=== PATIENT | female | born 1990 | race Caucasian/White ===

== ENCOUNTER 2025-04-22 10:57 | Outpatient (REF) | payer SELFPAY ==
--- OUTSIDE RECORDS SUMMARY | 2024-04-08 08:42 | XMS_ITS | Encounter Summary ---
Author Organization [facility] Address [address] [place] [address] Phone Care Team Providers Care Basket Weaver Name Role Phone OsmanCamden perry Smitha HEWITT Primary Care Provider [phone] Encounter Details Date Type Department Care Team (Late st Contact Info) Description 04/08/2024 8:42 AM EDT Hospital Encounter [facility] [address] [place] [address] Catia Martin FNP [address] [place] [id number] [email or web address] Social History Tobacco Use Types Packs/Day Years Used Date Smoking Tobacco: Every Day Cigarettes Smokeless Tobacco: Never Alcohol Use Standard Drinks/Week Comments Not Currently 70 (1 standard drink = 0.6 oz pu re alcohol) Daily 1/2 gallon Education Answer Date Recorded Are you interested in more education? Not on aleshia e 11/15/2022 Are you concerned about learning? Not on file 11/15/2022 No 11/15/2022 No 11/15/2022 Digital Access Answer Date Recorded No 12/16/2022 No 12/16/2022 Reliable internet access at home? Not on file 12/16/2022 Device with a working camera? Not on file Comments No Sex and Gender Information Value Date Recorded Sex Assigned at Female 11/27/2017 11:11 PM EDT Legal Sex Female 9:08 PM EDT Gender Identity Female 11/27/2017 11:11 PM EDT Sexual Orientation Straight 11/27/2017 11 :11 PM EDT documented as of this encounter Plan of Treatment Not on file documented as of this encounter Procedures Procedure Name Priority Date/Time Associated Diagnosis Comments XR FINGER 2 OR MORE VIEWS (LEFT) Urgent/patient waiting 04/08/2024 8:49 AM EDT Fall, initial encounter documented in this encounter Results * XR FINGER 2 OR MORE VIEWS (LEFT) (04/08/2024 8:49 AM EDT) Anatomical Region Laterality Modality Hand Left Computed Radiogr aphy 04/08/2024 9:05 AM EDT Impressions 04/08/2024 9:26 AM EDT Acute fracture of the little finger proximal phalanx with apex lateral and palmar angulation. ATTESTATION: Stacy Esteves as teaching physician, have reviewed the images for this case and if necessary edited the report originally created by Trey Winston. Narrative 04/08/2024 9:26 AM EDT XR FINGER 2 OR MORE VIEWS (LEFT) Referring clinician's provided indication for this examination in [facility]: S/P Fall; fall yesterday COMPARISON: None FINDINGS: Acute fracture of the proximal diaphysis of the little finger proximal phalanx with apex lateral and palmar angulation. Associated overlying soft tissue swelling. Normal joint spaces. Procedure Note Stacy Gallardo MD, YANIRA - 04/08/2024 XR FINGER 2 OR MORE VIEWS (LEFT) Referring clinician's provided indication for this examination in [facility]:S/P Fall; fall yesterday COMPARISON: None FINDINGS: Acute fracture of the proximal diaphysis of the little finger proximalphalanx with apex lateral and palmar angulation. Associated overlying softtissue swelling. Normal joint spaces. IMPRESSION: Acute fracture of the little finger proximal phalanx with apex lateral andpalmar angulation. ATTESTATION: Stacy Esteves as teaching physician, have reviewed theimages for this case and if necessary edited the report originally createdby Trey Winston. Catia Martin LEATHERSMITH IMG XR UPPER EXTREMITY Maribell l Result documented in this encounter Visit Diagnoses Not on filedocumented in this encounter Additional Health Concerns Infection Onset Date Last Indicated Resolved Time MDR-GN 06/30/2023 06/30/2023 06/29/2024 1:21 AM EST documented as of this encounter Care Teams Basket Weaver Relationship Specialty Start Date End Date Camden Fernández DO [email or web address] PCP - General 07/24/17 documented as of this encounter Additional Source Comments The information contained in this document represents components of the legal health record. It is not the complete legal health record.[facility]
--- OUTSIDE RECORDS SUMMARY | 2025-04-22 12:16 | XMS_ITS | Clinical Summary ---
Author Organization [facility] Address [address] [place] [address] Care Team Providers Care Merchandise Support Associate Name Role Phone Unavailable Primary Care Provider Unavailabl e Allergies No known active allergies Social History Tobacco Use Types Packs/Day Years Used Date Smoking Tobacco: Never Assessed Comments Unknown Sex and Gender Information Value Date Recorded Sex Assigned at Not on file Legal Sex Female 2:01 PM EST Gender Identity Not on file Sexual Orientation Not on file Last Filed Vital Signs Vital Sign Reading Time Taken Comments Blood Pressure 137/87 09/24/2022 2:09 PM EST Pulse 100 09/24/2022 2:09 PM EST Temperature 36.7 C (98.1 F) 09/24/2022 2:09 PM EST Respiratory Rate 17 09/24/2022 2:09 PM EST Oxygen Saturation 97% 09/24/2022 2:09 PM EST Inhaled Oxygen Concentration - - Weight 85.3 kg (188 lb) 09/24/2022 2:09 PM EST Height 157.5 cm (5' 2 ) 09/24/2022 2:09 PM EST Body Mass Index 34.39 09/24/2022 2:09 PM EST Plan of Treatment Health Maintenance Due Date Last Done Comments HIV Screening 1988 Varicella Vaccines (1 of 2 - 13+ 2-dose series) 2001 Hepatitis B Vaccines (1 of 3 - 19+ 3-dose series) 2007 DTaP,Tdap,and Td Vaccines (1 - Tdap) 2010 Alcohol/Substance Use Screening 07/21/2024 COVID-19 Vaccine (1 - 2023-2 5 season) 2025 Influenza Vaccine (#1) 2025 RSV Vaccine (60+ years old a nd patients) (1 - 1-dose 75+ series) 2063 Pneumococcal Vaccine: Pediat jaylen (0-5 Years) and At-Risk Patients (6-50 Years) Aged Out No longer eligible b ased on patient's age to complete this topic Insurance [facility]
--- OUTSIDE RECORDS SUMMARY | 2025-04-22 12:16 | XMS_ITS | Clinical Summary ---
Author Organization [facility] Address [address] [place] [address] Phone Care Team Providers Care Cash Grain Farmer Name Role Phone Camden Fernández Smitha HEWITT Primary Care Provider [phone] Allergies Active Allergy Reactions Criticality Noted Date Comments Oxycodone-Acetaminophen 12/02/2022 Other reaction(s): itchy Medications albuterol (PROAIR HFA) 90 mcg/actuation inhaler Inhale 2 puffs into the lungs every 4 (four) hours as needed. 10/21/2011 Active QUEtiapine (SEROQUEL) 100 MG tablet TK 1 T PO QD HS 2 06/18/2019 Active gabapentin (NEURONTIN) 300 MG capsule Take 300 mg by mouth 3 (three) times a day. Active LORazepam (ATIVAN) 0.5 MG tablet TK 2 TS PO TID FOR 7 DAYS 02/28/2020 Active sertraline (ZOLOFT) 100 MG tablet Take 100 mg by mouth daily. 02/20/2020 Active topiramate (TOPAMAX) 25 MG tablet Take 25 mg by mouth daily. 08/18/2023 Active zolpidem (AMBIEN) 10 mg tablet Take 10 mg by mouth daily as needed. Active melatonin 1 mg/mL oral liquid Take 1 mg by mouth nightly at bedtime as needed. 04/04/2021 Active hydrOXYzine (ATARAX) 25 MG tablet Take 25 mg by mouth every 8 (eight) hours as needed. 08/13/2023 Active cloNIDine HCL (CATAPRES) 0.1 MG tablet Take 0.1 mg by mouth 4 (four) times a day. 03/18/2024 Active ibuprofen (ADVIL,MOTRIN) 600 MG tablet Take 1 tablet (600 mg total) by mouth 3 (three) times a day for 3 days. Then tid prn pain/inflamm ation 30 tablet 04/08/2024 Active Active Problems Problem Noted Date Diagnosed Date Menorrhagia with regular cycle 08/26/2023 Overview (08/26/2023): Cycle sound normal, has increased flow from 3 to 5 days has some mild PMS symptoms Assessment & Plan (08/26/2023 6:13 PM EST): Cycles fall well within the normal range, though this been a slight change for her. This may actually be due to becoming healthier or recovering from substance use. Recommend she continue to track her cycles and return if they change further, recommend checking TSH and CBC Encounter for preconception consultation 024 Overview (08/26/2023): Is tried to conceive for 1 year, normal monthly cycles Assessment & Plan (08/26/2023 6:14 PM EST): I reviewed the steps of an infertility evaluation, and she would like to talk to her partner first. Additionally, it appears she has [facility], which means that while the evaluation is covered, treatment is not. Also per their rules, [place] able to except ifm-gx-pncows payments for treatments. She would like to talk about both evaluation and treatment with her partner before proceeding. Immunizations Immunization Administration Dates Next Due DTP 02/13/1993, 9,1988,08/08,1988 HPV,quadrivalent 11/21/2006,07/25/2006, 6 Hepatitis A, Adult 01/02/2015 Hepatitis B 10/02/1999,04/30/1999,03/19/1999 Influenza, Unspecified Formulation 04/27/2009 MMR 03/10/1998,07/16/1989 Meningococcal ACWY, unspecif ied formulation 03/26/2007 Polio - OPV 02/13/1993, 9,1988,06/19 Td (adult) 5 Lf Tetanus Toxo id, PF, Adsorbed 06/02/2000 Tdap 01/01/2019,10/21/2011,07/21/2011 Typhoid, ViCPs 01/02/2015 Varicella 05/29/2003 Family History Medical History Relation Comments Colon cancer Maternal Grandfather Lung cancer Maternal Grandfather Lung cancer Maternal Grandmother Hypertension Mother Alzheimer's disease Paternal Grandfather Relation Status Comments Maternal Grandfather Maternal Grandmother Mother Paternal Grandfather Social History Tobacco Use Types Packs/Day Years Used Date Smoking Tobacco: Every Day Cigarettes Smokeless Tobacco: Never Tobacco Cessation:Ready to Q uit: Not Asked; Counseling Given: Not Answered Alcohol Use Standard Drinks/Week Comments Not Currently [...] Orientation Straight 11/27/2017 11 :11 PM EDT Last Filed Vital Signs Vital Sign Reading Time Taken Comments Blood Pressure 106/72 04/08/2024 8:31 AM EDT Pulse 81 04/08/2024 8:31 AM EDT Temperature 36.8 C (98.3 F) 04/08/2024 8:31 AM EDT Respiratory Rate 18 04/08/2024 8:31 AM EDT Oxygen Saturation 100% 04/08/2024 8:31 AM EDT Inhaled Oxygen Concentration - - Weight 71.7 kg (158 lb) 08/26/2023 3:17 PM EST Height 160 cm (5' 3 ) 08/26/2023 3:17 PM EST Body Mass Index 27.99 08/26/2023 3:17 PM EST Plan of Treatment Health Maintenance Due Date Last Done Comments DEPRESSION SCREENING 2000 SMOKING Hx and SMOKELESS TOBACCO SCREENING 2001 PNEUMOCOCCAL VACCINES (0-49 years) (1 of 2 - PCV) 2007 INFLUENZA VACCINE (#1) 2025 04/27/2009 COVID-19 VACCINE (1 - season) 2025 SCREENING FOR DIABETES 08/27/2025 08/27/2022 PAP SMEAR 08/26/2026 08/26/2023, 01/08/2017 Adult Td,Tdap Booster 01/01/2029 01/01/2019 , 10/21/2011, 07/21/2011, Additional history exists MENINGOCOCCAL VACCINES (ACWY) Completed 03/26/2007 HIV ONE-TIME SCREENING (18-65 YEARS) Completed 05/27/2022 HEPATITIS C SCREENING Completed 08/27/2022 , 05/27/2022, 05/27/2022, Additional history exists HIB VACCINES Aged Out No longer eligi ble based on patient's age to complete this topic MENINGOCOCCAL VACCINES (B) Aged Out N o longer eligible based on patient's age to complete this topic Medical Devices Not on file Procedures Procedure Name Priority Date/Time Associated Diagnosis Comments PAP TEST Routine 08/26/2023 12:00 AM EST HC IADNA HEPATITIS C QUANT & REVERSE ACCOUNT DEVELOPMENT REPRESENTATIVE Routine 08/27/2022 11:17 AM EST Abnormal results of liver function studies Chronic hepatitis C with hepatic coma from Last 3 Months or Most Recently Relevant to Health Maintenance Results * Pap Test (08/26/2023 12:00 AM EST) 08/26/2023 08/27/2023 10: 04 AM EST Narrative SEE NARRATIVE - 09/02/2023 11:21 AM EST [address] [address] Blanking Press Operator: Elly Haskins MD ART EDUCATION PROFESSOR Cytology Report FINAL DIAGNOSIS A. PAP SMEAR (SUREPATH) CE: SPECIMEN ADEQUACY: Satisfactory for evaluation; transformation zone absent/insufficient. INTERPRETATION: NEGATIVE FOR INTRAEPITHELIAL LESION OR MALIGNANCY. Coccobacilli consistent with shift in jayro Electronically Signed Out By: RU Barcenas(ASCP) The Pap test is a screening test primarily for squamous cancers and precursors and has associated false-negative and false-positive results. New technologies such as liquid-based preparations may decrease but will not eliminate all false-negative results. Regular sampling and follow-up of unexplained clinical signs and symptoms are recommended to minimize false negative results. PROCEDURES/ADDENDA HPV Testing (Requested) Ordered Date: 08/27/2023 A. PAP SMEAR (SUREPATH) CE: Human Papilloma Virus Test NEGATIVE for high-risk Human Papilloma Virus types 16, 18, 45 and the Other high risk probe set (Includes 31, 33, 35, 39, 51, 52, 56, 58, 59, 66, 68) Note: Testing performed by [employer] HR-HPV analysis. Clinical correlation is advised. This HPV test was performed at [facility], [address] [place] [address]. This test has been FDA approved for [employer] cervical cytology specimens. The accuracy and precision of this test for all other specimen sources has been verified in the Cytopathology Laboratory of the [facility] and has not been cleared or approved by the U.S. Food and Drug Administration. Clinical correlation is advised. CLINICAL HISTORY Date of Last Menstrual Period: 08-08-2023 Other Clinical Conditions: Screening Pap SPECIMEN SOURCE A: PAP SMEAR (SUREPATH) CE Patient Name: MERLYN ROBLES : 1990 (Age: 33) Sex: F Institution: [facility] Location: [facility] Date of Collection: 08/26/2023 Date of Reported: 09/02/2023 11:21 Results to: Zuleika Day MD us Zuleika Day MD CYTOLOGY ORDERABLES Final Result SEE NARRATIVE * Hepatitis C RNA (08/27/2022 11:17 AM EST) HCV RNA Detect/Quant Undetected Undetected IU/mL [facility] [address] Comment: (NOTE) Result in log IU/mL is Undetected. Genotype testing was not performed due to HCV viral load below 500 IU/mL. ADDITIONAL INFORMATION The quantification range of this assay is 15 to 100,000,000 IU/mL (1.18 log to 8.00 log IU/mL). Testing was performed using the vinicio HCV test ([employer] with the vinicio [employer] System. Blood 08/27/2022 11:1 7 AM EST 08/27/2022 11:22 AM EST Margaret Bateman NP LAB BLOOD ORDERABLES Maribell fulton Result [facility] [address] [place] [address] from Last 3 Months or Most Recently Relevant to Health Maintenance Insurance [facility] [employer] Care Teams Cash Grain Farmer Relationship Specialty Start Date End Date Camden Fernández DO PCP - General 07/24/17 Additional Source Comments The information contained in this document represents components of the legal health record. It is not the complete legal health record.[facility]
--- OUTSIDE RECORDS SUMMARY | 2025-04-22 12:16 | XMS_ITS | Encounter Summary ---
Author Organization [facility] Address [address] [place] [address] Phone Care Team Providers Care Wheelchair Van Driver Name Role Phone Camden Fernández DO Primary Care Provider [phone] Camden Fernández DO Unavailable Encounter Details Date Type Department Care Team (Latest Contact Info) Description 05/27/2022 Transcribe Orders Virtual Department [address] [place] [address] Margaret Bateman NP [address] [place] [address] Hepatitis C virus infection without hepatic coma, unspecified chronicity (Primary Dx) Social History Tobacco Use Types Packs/Day Years Used Date Smoking Tobacco: Every Day Cigarettes Smokeless Tobacco: Never Alcohol Use Standard Drinks/Week Comments Yes 70 (1 standard drink = 0.6 oz pu re alcohol) Daily 1/2 gallon Comments No Sex and Gender Information Value Date Recorded Sex Assigned at Female 11/27/2017 11:11 PM EDT Legal Sex Female 9:08 PM EDT Gender Identity Female 11/27/2017 11:11 PM EDT Sexual Orientation Straight 11/27/2017 11 :11 PM EDT documented as of this encounter Plan of Treatment Not on file documented as of this encounter Results * US LIVER WITH ELASTOGRAPHY (06/17/2022 9:14 AM EST) Anatomical Region Laterality Modality Abdomen Ultrasound 06/17/2022 1:00 PM EST Impressions 06/17/2022 3:14 PM EST 1. The median shear wave speed is 1.28 m/s. In the absence of other known clinical signs this rules out compensated advanced chronic liver disease. 2. Findings consistent with fatty infiltration of the liver. 3. Less than ideal evaluation of the gallbladder. The gallbladder appears contracted. Multiple calculi within the gallbladder versus artifact from adjacent bowel. Short-term follow-up right upper quadrant ultrasound could be performed to reevaluate the gallbladder and 6-8 weeks. 4. Very mild dilation of the proximal common duct which tapers to a normal caliber more distally. This may be clinically insignificant but can be correlated clinically. [employer] [facility]: In the setting of elevated liver function tests, nonfasting, vascular congestion, etc., the stage of liver fibrosis may be overestimated. In some patients with NAFLD, the cut-off values for compensated advanced chronic liver disease may be lower. In causes other than viral hepatitis and NAFLD, the cut-off values are not well established. Narrative 06/17/2022 3:14 PM EST US LIVER WITH ELASTOGRAPHY HISTORY: Abnormal liver function tests, hepatitis C. TECHNIQUE: Focused ultrasound evaluation of the liver. Volumetric sweeps were obtained and reviewed. COMPARISON: Right upper quadrant ultrasound 10/13/2017. FINDINGS: LIVER: The liver is mild-moderately hyperechoic similar to 10/13/2017. No focal lesions. ELASTOGRAPHY: 10 valid measurements were obtained. Median shear wave speed is: 1.28 m/s. IQR to median ratio: 13%. BILIARY: Gallbladder: Visualization of the gallbladder is less than ideal. The gallbladder appears contracted. Area of echogenic shadowing in the region of the gallbladder. No sonographic Villafana's sign. Common bile duct measures approximately the common bile duct measures 7 mm. It tapers to 5 mm more distally.. Procedure Note Rosalio Dumont MD - 06/17/2022 US LIVER WITH ELASTOGRAPHY HISTORY: Abnormal liver function tests, hepatitis C. TECHNIQUE: Focused ultrasound evaluation of the liver. Volumetric sweeps wereobtained and reviewed. COMPARISON: Right upper quadrant ultrasound 10/13/2017. FINDINGS: LIVER: The liver is mild-moderately hyperechoic similar to 10/13/2017. Nofocal lesions. ELASTOGRAPHY: 10 valid measurements were obtained. Median shear wavespeed is: 1.28 m/s. IQR to median ratio: 13%. BILIARY: Gallbladder: Visualization of the gallbladder is less than ideal.The gallbladder appears contracted. Area of echogenic shadowing in theregion of the gallbladder. No sonographic Villafana's sign. Common bile duct measures approximately the common bile ductmeasures 7 mm. It tapers to 5 mm more distally.. IMPRESSION: 1. The median shear wave speed is 1.28 m/s. In the absence of other knownclinical signs this rules out compensated advanced chronic liverdisease. 2. Findings consistent with fatty infiltration of the liver. 3. Less than ideal evaluation of the gallbladder. The gallbladder appearscontracted. Multiple calculi within the gallbladder versus artifact fromadjacent bowel. Short-term follow-up right upper quadrant ultrasound couldbe performed to reevaluate the gallbladder and 6-8 weeks. 4. Very mild dilation of the proximal common duct which tapers to a normalcaliber more distally. This may be clinically insignificant but can becorrelated clinically. [employer] [facility]: In the setting of elevated liver function tests, nonfasting, vascularcongestion, etc., the stage of liver fibrosis may be overestimated. Insome patients with NAFLD, the cut-off values for compensated advancedchronic liver disease may be lower. In causes other than viral hepatitisand NAFLD, the cut-off values are not well established. us Margaret Bateman LABOR RELATIONS CONSULTANT IMG US ABDOMEN Final Res ult documented in this encounter Visit Diagnoses Diagnosis Hepatitis C virus infection without hepatic coma, unspecified chronicity- Primary Hepatitis C virus infection without hepatic coma, unspecified chronicity documented in this encounter Additional Health Concerns Infection Onset Date Last Indicated Resolved Time MDR-GN 06/30/2023 06/30/2023 06/29/2024 1:21 AM EST documented as of this encounter Care Teams Wheelchair Van Driver Relationship Specialty Start Date End Date Camden Fernández DO PCP - General 07/24/17 Camden Fernández DO [address] [place] [address] [email or web address] Insurance Assigned Provider 07/25/1812/07 documented as of this encounter Additional Source Comments The information contained in this document represents components of the legal health record. It is not the complete legal health record.[facility]
--- OUTSIDE RECORDS SUMMARY | 2025-04-22 12:16 | XMS_ITS | Encounter Summary ---
Author Organization [facility] Address [address] [place] [address] Phone Care Team Providers Care Associate Accountant Name Role Phone OsmanCamden perry Primary Care Provider [phone] OsmanCamden perry Unavailable Encounter Details Date Type Department Care Team (Late st Contact Info) Description 03/21/2022 Procedure Pass [facility], Ct Scan - [facility] [address] [place] [address] Social History Tobacco Use Types Packs/Day Years [...] PM EDT documented as of this encounter Functional Status * Calculated C-SSRS Risk Score (Lifetime/Recent) Answer Date of Assessment Author No Risk Indicated 03/21/2022 3:06 PM EDT Negin De RN * [place] Suicide Severity Rating Scale (Screener/Recent Self-Report) Question Answer Date of Assessment Author 1. Wish to be (Past 1 Month) No 022 3:06 PM EDT Negin De RN 2. Non-Specific Active Suici tiarra Thoughts (Past 1 Month) No 03/21/2022 3:06 PM EDT Negin De , RN 6. Suicidal Behavior (Lifetime) No 3:06 PM EDT Negin De, MARLY documented as of this encounter Plan of Treatment Not on file documented as of this encounter Visit Diagnoses Not on filedocumented in this encounter Additional Health Concerns Infection Onset Date Last Indicated Resolved Time MDR-GN 06/30/2023 06/30/2023 06/29/2024 1:21 AM EST documented as of this encounter Care Teams Associate Accountant Relationship Specialty Start Date End Date Camden Fernández DO [email or web address] PCP - General 07/24/17 Camden Fernández DO [address] [place] [address] Insurance Assigned Provider 07/25/1812/07 documented as of this encounter Additional Source Comments The information contained in this document represents components of the legal health record. It is not the complete legal health record.[facility]
--- OUTSIDE RECORDS SUMMARY | 2025-04-22 12:16 | XMS_ITS | Clinical Summary ---
Author Organization [facility] it Address [address] [place] [address] Care Team Providers Care Shuttle Repairer Name Role Phone Unavailable Primary Care Provider Unavailabl e Social History Tobacco Use Types Packs/Day Years Used Date Smoking Tobacco: Never Assessed Comments Unknown Sex and Gender Information Value Date Recorded Sex Assigned at Not on file Legal Sex Female 3:08 AM EST Gender Identity Not on file Sexual Orientation Not on file Plan of Treatment Health Maintenance Due Date Last Done Comments DTaP,Tdap,and Td Vaccines (1 - Tdap) 2007 Hepatitis B Vaccines (1 of 3 - 19+ 3-dose series) 2007 Cervical Cancer Screening: P ap Smear 2009 HPV Vaccines (1 - 3-dose SCD M series) 2015 Depression Screening 07/21/2024 COVID-19 Vaccine ( - 2023-2 5 season) 2025 Influenza Vaccine (#1) 2025 RSV Immunization Adult Patie nts (1 - 1-dose 75+ series) 2063 HIB Vaccines Aged Out No longer eligi ble based on patient's age to complete this topic Hepatitis A Vaccines Aged Out No long er eligible based on patient's age to complete this topic IPV Vaccines Aged Out No longer eligi ble based on patient's age to complete this topic MMR Vaccines Aged Out No longer eligi ble based on patient's age to complete this topic Meningococcal ACWY Vaccine Aged Out N o longer eligible based on patient's age to complete this topic Meningococcal B Vaccine Aged Out No l onger eligible based on patient's age to complete this topic Pneumococcal Vaccine: Pediat rics (0 to 5 Years) and At-Risk Patients (6 to 49 Years) Aged Out No longer eligible b ased on patient's age to complete this topic RSV Immunization Patients Un chino 20 months Aged Out No longer eligible b ased on patient's age to complete this topic Varicella Vaccines Aged Out No longer eligible based on patient's age to complete this topic Advance Directives Documents on File Type Date Recorded Patient Ship/Rec/Doc Control Expl anation Health Care Decision (hx) 11/25/2020 TAYLOR WEBB DIRECTIVE
[2025-04-22 13:40] LABS: MANUAL DIFF FLAG NO
[2025-04-22 14:02] LABS: Hematocrit 38.6 % (37.0-47.0); Hemoglobin 13.0 g/dl (12.0-16.0); Imm Gran Abs Auto 0.02 X10*3/uL (0.00-0.03); Imm Gran Pct Auto 0.2 % (0.0-0.4); Lymphocytes Absolute Auto 3.0 X10*3/uL (1.2-4.9); Mean Corpuscular HGB Conc 33.7 g/dl (31.0-35.0); Mean Corpuscular Hemoglobin 30.2 pg (27.0-33.0); Mean Corpuscular Volume 89.6 fL (80.0-98.0); NRBC Abs Auto 0.000 X10*3/uL (0.0-0.012); NRBC Pct Auto 0.0 /100WBC (0.0-0.2); Platelet Count 412 X10*3/uL (160-400); Red Blood Count 4.31 X10*6/uL (4.20-5.50); White Blood Count 8.1 X10*3/uL (4.8-10.8)
[2025-04-22 14:19] LABS: Alanine Aminotransferase 17 U/L (0-31); Albumin Level 4.7 g/dL (3.5-5.0); Alkaline Phosphatase 88 U/L (39-117); Anion Gap 10 (12-20); Aspartate Amino Transferase 20 U/L (5-31); Blood Urea Nitrogen 12 mg/dL (9-16); Calcium 9.1 mg/dL (8.4-10.2); Carbon Dioxide 26 mmol/L (22-29); Chloride 107 mmol/L (96-108); Cholesterol 165 mg/dL (<200); Estimated Glomerular Filt Rate > 60; HDL Cholesterol 55 mg/dL (>40); Potassium 3.9 mmol/L (3.3-5.1); Sodium 139 mmol/L (135-145); Total Protein 7.4 g/dL (6.5-8.0); Triglycerides 41 mg/dL (<150)
[2025-04-22 14:48] LABS: Hemoglobin A1C 184.1834 umol/L; Total Hemoglobin (HGBA1C) 4867.3712 umol/L
[2025-04-22 14:52] LABS: Free T4 (Free Thyroxine) 0.99 ng/dL (0.71-1.85); Thyroid Stimulating Hormone 0.41 uIU/mL (0.32-4.0)
[2025-04-23 19:48] LABS: Follicle Stimulating Hormone 19.1 mIU/mL
[2025-04-28 05:40] LABS: Estradiol Ultra Sensitive 125 pg/mL
[2025-05-01 06:38] LABS: Testosterone, Free 2.4 pg/mL (0.1-6.4)
== END 2025-04-22 10:58 | disposition home or self-care (01) ==
LOC: HO.MANLDS 10:57
PROVIDERS: Visit Provider Physician Assistant
DX: Z00.00 Encounter for general adult medical examination without abnormal findings (principal); Z30.09 Encounter for other general counseling and advice on contraception; Z13.1 Encounter for screening for diabetes mellitus; Z13.6 Encounter for screening for cardiovascular disorders
CPT/HCPCS: 36415; 80053; 80061; 82670; 82672; 83001; 83002; 83036; 84144; 84146; 84402; 84403; 84439; 84443; 85025